=== PATIENT | female | born 1975 | race Caucasian/White ===

== ENCOUNTER 2024-08-16 13:29 | Outpatient (AMB) | payer MEDICAID, SELFPAY ==
[2024-08-16 13:48] VITALS: BP 163/98; PULSE 74; RESP 18; TEMP 36.2; O2SAT 94; BMI 30.2
--- NOTE | 2024-08-16 13:48 | ORTHONT_ITS ---
Vital signs 08/16/24 13:48 Height 1.55 m Height Method Stated Weight 72.66 kg Weight Measurement Method Standing Scale BMI 30.2 BP 163/98 H Blood Pressure Source Automatic Cuff Blood Pressure Location Left Upper Arm Position Sitting Respiration 18 Pulse 74 Pulse Source Monitor Temp 97.1 F Temp Source Temporal Artery Scan Pulse Oximetry (%) 94 L Oxygen Delivery Method Room Air Med/Allergies Allergies & Medications Allergies No Known Allergies Allergy (Verified 08/16/24 13:50) Medication Reconciliation hydrocodone 5 mg-acetaminophen 325 mg tablet 1 tab PO BID PRN 08/16/24 [History Confirmed 08/16/24] naproxen 500 mg tablet 500 mg PO BID 08/16/24 [History Confirmed 08/16/24] Exam Exam Patient is in no acute distress and is cooperative with the examination today. Breathing is nonlabored. Patient has a normal mood and affect. Bilateral extremities were evaluated and demonstrates sensation intact to light touch. Palpable pedal pulses are present. No significant edema is present. Bilateral hips were examined. The patient has no pain with log roll of the hips. Internal rotation to 30 degrees and external rotation to 30 degrees is painless. Negative FADIR. Right knee was examined today. Right knee range of motion 0 to 110 degrees Left knee was examined today. The left knee is in varus alignment. Range of motion from 0-115 degrees. Knee is stable to varus and valgus as well as AP translation with <5mm. Patient has a negative McMurrays. There is no pain with patellofemoral compression and no crepitus noted. The knee is tender to palpation medially. Assessment and Plan Problem List (1) Arthritis of left knee: Status: Acute Plan: Patient is a pleasant 49-year-old female with left knee pain and left knee arthritis. She did well from a right total knee replacement. We would need to get new x-rays of her left knee as she has not had any recently. We can discuss different treatment options depending what this shows. 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 ([id number]) MA Intake Visit Data Collection New Patient or Established: New Patient (never been to [facility]) Reason for Visit:: LEFT KNEE PAIN Seen by Clinical Staff ONLY (RN/MA): No Manufacturing Specialist Required: No PCP or OBGYN visit in last 3 months: Yes Hx Now: No Do You Feel Safe at Home: Yes Authorities Contacted: N/A Questionairres Past Medical History Past Medical History Have you ever been diagnosed with any of the following: Stomache/Intestinal Problems Crohn's Disease: Yes Reproductive Problems Endometriosis: Yes Musculoskeletal Problems Arthritis: Yes Subjective Visit Visit for: new patient and knee (LEFT) Immunization / Flu Flu Vaccine in the Last 12 Months: No Flu Vaccine Exclusion Criteria: No Exclusion Criteria History of Present Illness Chief complaint: Left knee pain Brandon is a pleasant 49-year-old female with left knee pain and left knee arth ritis. She had a history of a right total knee replacement 1 year ago. 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 She has had no injections on the left foot has tried naproxen. 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
== END 2024-08-16 14:08 | disposition home or self-care (01) ==
PROVIDERS: PCP Family Medicine; Referring Provider Family Medicine; Supervising Provider Orthopaedic Surgery Adult Reconstructive Orthopaedic Surgery; Visit Provider Orthopaedic Surgery Adult Reconstructive Orthopaedic Surgery
DX: M17.12 Unilateral primary osteoarthritis, left knee (principal); M25.562 Pain in left knee; Z96.651 Presence of right artificial knee joint; K50.90 Crohn's disease, unspecified, without complications
CPT/HCPCS: 99204; G0463

== ENCOUNTER 2024-11-05 14:12 | Outpatient (AMB) | payer MEDICAID, SELFPAY ==
[2024-11-05 14:25] VITALS: BP 132/86; PULSE 84; RESP 18; TEMP 36.7; O2SAT 98; BMI 28.3
--- NOTE | 2024-11-05 14:25 | PD.ORTHCLVIS ---
Vital signs 11/05/24 14:25 Height 1.55 m Height Method Stated Weight 68.181 kg Weight Measurement Method Standing Scale BMI 28.3 BP 132/86 H Blood Pressure Source Automatic Cuff Blood Pressure Location Right Upper Arm Position Sitting Respiration 18 Pulse 84 Pulse Source Monitor Temp 98.1 F Temp Source Temporal Artery Scan Pulse Oximetry (%) 98 Oxygen Delivery Method Room Air Med/Allergies Allergies & Medications Allergies No Known Allergies Allergy (Verified 11/05/24 14:26) Medication Reconciliation hydrocodone 5 mg-acetaminophen 325 mg tablet 1 tab PO BID PRN 08/16/24 [History Confirmed 11/05/24] naproxen 500 mg tablet 500 mg PO BID 08/16/24 [History Confirmed 11/05/24] Exam Exam Patient is in no acute distress and is cooperative with the examination today. Breathing is nonlabored. Patient has a normal mood and affect. Bilateral extremities were evaluated and demonstrates sensation intact to light touch. Palpable pedal pulses are present. No significant edema is present. Bilateral hips were examined. The patient has no pain with log roll of the hips. Internal rotation to 30 degrees and external rotation to 30 degrees is painless. Negative FADIR. Right knee was examined today. Right knee range of motion 0 to 110 degrees Left knee was examined today. The left knee is in varus alignment. Range of motion from 0-115 degrees. Knee is stable to varus and valgus as well as AP translation with <5mm. Patient has a negative McMurrays. There is no pain with patellofemoral compression and no crepitus noted. The knee is tender to palpation medially. Assessment and Plan Problem List (1) Arthritis of left knee: Status: Acute Plan: Patient is a pleasant 49-year-old female with left knee pain and left knee arthritis. She did well from a right total knee replacement. She has severe arthritis of the left knee and would like a cortisone injection. The MRI did not demonstrate a possible medial subchondral fracture as well as degenerative changes Recommend knee cortisone injection as patient would like to proceed with conservative treatment at this time. The risks and benefits of the procedure were reviewed with the patient and patient gave verbal consent to continue with the procedure. Procedure: performed by Dr. Dubose Using sterile technique the left knee was thoroughly prepped with alcohol, and approximately 1 cc of Kenalog 40 mg/mL and 4 cc of 1% lidocaine was injected without resistance into the medial tibial femoral joint space. The patient tolerated the procedure. Office Procedures GNS Level of Care Nursing/Assessment Patient Status: Established Patient Nursing Assessment/Reassesment: Medication Reconciliation, Update PMH in EMR and Vital Signs Coordination of Care: Complex Care and Chronic Disease 1-5, Education Complex Pt/Fam, Consent,records obtained, informed consent, Results/Orders obtained and Staff clarify orders Established Patient Charge Established Patient Point Assignment: 95 Established Patient Point Charge: EP Level 3 (80-115) Surgical Proc/IM SQ injection Major Surgical Procedure: Yes (KNEE INJECTION ) Medication Given Medication Given Medication Given: Yes Documented Dose Given: 4 Route: Infiitration Medication Given Medication Given Medication Given: Yes Documented Dose Given: 1 Route: Infiitration Office Meds Xylocaine 10 mg/mL (1 %) injection solution Performing Provider: Pedro Dubose MD Performing Location: [facility] Administered by: Pedro Dubose MD on 11/05/24 14:45 Dose Route Admin Location Dispensed Lot Number Expiration Date [facility] Heat Regulator 20 mL Infiltration 20 mL [id number] [facility] triamcinolone acetonide 40 mg/mL suspension for injection Performing Provider: Pedro Dubose MD Performing Location: [facility] Administered by: Pedro Dubose MD on 11/05/24 14:45 Dose Route Admin Location Dispensed Lot Number Expiration Date [facility] Heat Regulator 40 mg intra-articular KNEE 1 mL [id number] 04/09/26 3983-0158-05 TEVA PARENTERAL MA Intake Visit Data Collection New Patient or Established: Established Patient (seen at [facility] within 3 years) Reason for Visit:: MRI RESULTS/XRAY RESULT LT KNEE Seen by Clinical Staff ONLY (RN/MA): No 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 Required: No PCP or OBGYN visit in last 3 months: Yes Hx Now: No Do You Feel Safe at Home: Yes Authorities Contacted: N/A Questionairres Past Medical History Past Medical History Have you ever been diagnosed with any of the following: Respiratory Problems Smoking: No Smoking Cessation Counseling: No Smoking Exposure: No Tobacco Use: No Stomache/Intestinal Problems Crohn's Disease: Yes Reproductive Problems Endometriosis: Yes Musculoskeletal Problems Arthritis: Yes Subjective Visit Visit for: follow up visit and knee (LT KNEE ) Immunization / Flu Flu Vaccine in the Last 12 Months: No Flu Vaccine Exclusion Criteria: Refused by Patient History of Present Illness Chief complaint: Left knee pain Brandon is a pleasant 49-year-old female with left knee pain and left knee arthritis. She had a history of a right total knee replacement 1 year ago. 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 She has had no injections on the left foot has tried naproxen. 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
== END 2024-11-05 14:41 | disposition home or self-care (01) ==
PROVIDERS: PCP Family Medicine; Referring Provider Family Medicine; Supervising Provider Orthopaedic Surgery Adult Reconstructive Orthopaedic Surgery; Visit Provider Orthopaedic Surgery Adult Reconstructive Orthopaedic Surgery
DX: M17.12 Unilateral primary osteoarthritis, left knee (principal); M25.562 Pain in left knee; Z96.621 Presence of right artificial elbow joint
CPT/HCPCS: 20610; 99213; J3301; J3490; G0463

== ENCOUNTER 2025-02-04 09:43 | Outpatient (AMB) | payer MEDICAID, SELFPAY ==
--- NOTE | 2025-02-04 10:04 | ORTHONT_ITS ---
Vital signs 02/04/25 10:10 Height 1.55 m Height Method Measured Weight 70.931 kg Weight Measurement Method Standing Scale BMI 29.5 BP 143/81 H Blood Pressure Source Automatic Cuff Blood Pressure Location Left Upper Arm Position Sitting Respiration 18 Pulse 72 Pulse Source Monitor Temp 97.8 F Temp Source Temporal Artery Scan Pulse Oximetry (%) 98 Oxygen Delivery Method Room Air Med/Allergies Allergies & Medications Allergies No Known Allergies Allergy (Verified 02/04/25 10:11) Medication Reconciliation hydrocodone 5 mg-acetaminophen 325 mg tablet 1 tab PO BID PRN 08/16/24 [History Confirmed 02/04/25] naproxen 500 mg tablet 500 mg PO BID 08/16/24 [History Confirmed 02/04/25] Exam Exam Patient is in no acute distress and is cooperative with the examination today. Breathing is nonlabored. Patient has a normal mood and affect. Bilateral extremities were evaluated and demonstrates sensation intact to light touch. Palpable pedal pulses are present. No significant edema is present. Bilateral hips were examined. The patient has no pain with log roll of the hips. Internal rotation to 30 degrees and external rotation to 30 degrees is painless. Negative FADIR. Right knee was examined today. Right knee range of motion 0 to 110 degrees Left knee was examined today. The left knee is in varus alignment. Range of daryn on from 0-115 degrees. Knee is stable to varus and valgus as well as AP translation with <5mm. Patient has a negative McMurrays. There is no pain with patellofemoral compression and no crepitus noted. The knee is tender to palpation medially. Assessment and Plan Problem List (1) Arthritis of left knee: Status: Acute Plan: Patient is a pleasant 49-year-old female with left knee pain and left knee arthritis. She did well from a right total knee replacement. She has severe arthritis of the left knee and would like a cortisone injection. The MRI ddemonstrated a possible medial subchondral fracture as well as degenerative changes. We will get repeat x-rays to better evaluate her knee including a [place] Office Procedures GNS Level of Care Nursing/Assessment Patient Status: Established Patient Nursing Assessment/Reassesment: Medication Reconciliation, Update PMH in EMR and Vital Signs Coordination of Care: Complex Care and Chronic Disease 1-5, Education Complex Pt/Fam, Consent,records obtained, informed consent, Results/Orders obtained and Staff clarify orders Established Patient Charge Established Patient Point Assignment: 95 Established Patient Point Charge: EP Level 3 (80-115) MA Intake Visit Data Collection New Patient or Established: Established Patient (seen at [facility] within 3 years) Reason for Visit:: KNEE INJECTION Seen by Clinical Staff ONLY (RN/MA): No Advertising Project Manager Required: No PCP or OBGYN visit in last 3 months: Yes Hx Now: No Do You Feel Safe at Home: Yes Authorities Contacted: N/A Questionairres Past Medical History Past Medical History Have you ever been diagnosed with any of the following: Respiratory Problems Smoking: No Smoking Cessation Counseling: No Smoking Exposure: No Tobacco Use: No Stomache/Intestinal Problems Crohn's Disease: Yes Reproductive Problems Endometriosis: Yes Musculoskeletal Problems Arthritis: Yes Subjective Visit Visit for: follow up visit and knee Immunization / Flu Flu Vaccine in the Last 12 Months: No Flu Vaccine Exclusion Criteria: No Exclusion Criteria History of Present Illness Chief complaint: KNEE INJECTION Brandon is a pleasant 49-year-old female with left knee pain and left knee arthritis. She had a history of a right total knee replacement 1 year ago. 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 She has had no injections on the left foot has tried naproxen. 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: NONE Red flag PMH: none BMI Counceling provided: No Pain Pain level (0-10): 8 Pain duration: 1 DAY Pain location: inside (medial) and outside (lateral) Pain quality: sharp, dull, aching and burning Pain timing: night Associated signs & symptoms: none Ambulatory data Ambulatory device: none Walking distance (blocks): 0 Walking distance (minutes): 1 Treatments Number of previous injections: 2 Improvement with previous injections: Yes Number of Physical Therapy sessions: 0 Improvement with PT: No Improvement with NSAIDS: no Review of Systems Review of Systems: All systems negative unless otherwise noted in HPI.
[2025-02-04 10:10] VITALS: BP 143/81; PULSE 72; RESP 18; TEMP 36.6; O2SAT 98; BMI 29.5
--- NOTE | 2025-02-04 10:13 | XR_ITS ---
Examination: Bilateral knees 2 views Right lateral knee left lateral knee 2 views Bilateral axial knees single view TECHNIQUE: Bilateral AP knees standing single view, bilateral PA knees standing flexion single view Standing right lateral knee left lateral knee Bilateral axial knees single view total 5 views Date and time: February 04, 2025 1038 hours INDICATIONS: Bilateral knee pain beginning 10 years ago FINDINGS: Moderate osteopenia Total right knee arthroplasty. Satisfactory alignment No fracture Advanced narrowing medial joint space left knee Mild osteoarthritis left patellofemoral joint IMPRESSION: Total right knee arthroplasty with satisfactory alignment No definite loosening of the prosthetic components Advanced narrowing medial joint space left knee
== END 2025-02-04 10:20 | disposition home or self-care (01) ==
PROVIDERS: PCP Nurse Practitioner; Referring Provider Nurse Practitioner; Supervising Provider Orthopaedic Surgery Adult Reconstructive Orthopaedic Surgery; Visit Provider Orthopaedic Surgery Adult Reconstructive Orthopaedic Surgery
DX: M17.12 Unilateral primary osteoarthritis, left knee (principal); M25.562 Pain in left knee; Z96.651 Presence of right artificial knee joint
CPT/HCPCS: 73564; 99213; G0463

== ENCOUNTER 2025-02-28 14:24 | Outpatient (AMB) | payer MEDICAID, SELFPAY ==
[2025-02-28 14:33] VITALS: BP 129/79; PULSE 72; RESP 18; TEMP 36.6; O2SAT 97; BMI 29.5
--- NOTE | 2025-02-28 14:33 | PD.ORTHCLVIS ---
Vital signs 02/28/25 14:33 Height 1.55 m Height Method Stated Weight 70.959 kg Weight Measurement Method Standing Scale BMI 29.5 BP 129/79 Blood Pressure Source Automatic Cuff Blood Pressure Location Left Upper Arm Position Sitting Respiration 18 Pulse 72 Pulse Source Monitor Temp 97.8 F Temp Source Temporal Artery Scan Pulse Oximetry (%) 97 Oxygen Delivery Method Room Air Med/Allergies Allergies & Medications Allergies No Known Allergies Allergy (Verified 02/28/25 14:34) Medication Reconciliation hydrocodone 5 mg-acetaminophen 325 mg tablet 1 tab PO BID PRN 08/16/24 [History Confirmed 02/28/25] naproxen 500 mg tablet 500 mg PO BID 08/16/24 [History Confirmed 02/28/25] Exam Exam Patient is in no acute distress and is cooperative with the examination today. Breathing is nonlabored. Patient has a normal mood and affect. Bilateral extremities were evaluated and demonstrates sensation intact to light touch. Palpable pedal pulses are present. No significant edema is present. Bilateral hips were examined. The patient has no pain with log roll of the hips. Internal rotation to 30 degrees and external rotation to 30 degrees is painless. Negative FADIR. Right knee was examined today. Right knee range of motion 0 to 110 degrees Left knee was examined today. The left knee is in varus alignment. Range of motion from 0-115 degrees. Knee is stable to varus and valgus as well as AP translation with <5mm. Patient has a negative McMurrays. There is no pain with patellofemoral compression and no crepitus noted. The knee is tender to palpation medially. Assessment and Plan Problem List (1) Arthritis of left knee: Status: Acute Plan: Patient is a pleasant 49-year-old female with left knee pain and left knee arthritis. She did well from a right total knee replacement. She has severe arthritis of the left knee and would like a cortisone injection. The MRI ddemonstrated a possible medial subchondral fracture as well as degenerative changes. Recommend knee cortisone injection as patient would like to proceed with conservative treatment at this time. The risks and benefits of the procedure were reviewed with the patient and patient gave verbal consent to continue with the procedure. Procedure: performed by Dr. Dubose Using sterile technique the left knee was thoroughly prepped with alcohol, and approximately 1 cc of Depo-Medrol 80mg/mL and 4 cc of 0.2% ropivacaine was injected without resistance into the medial tibial femoral joint space. The patient tolerated the procedure. Office Procedures GNS Level of Care Nursing/Assessment Patient Status: Established Patient Nursing Assessment/Reassesment: Medication Reconciliation, Update PMH in EMR and Vital Signs Coordination of Care: Complex Care and Chronic Disease 1-5, Education Complex Pt/Fam, Consent,records obtained, informed consent, Results/Orders obtained and Staff clarify orders Established Patient Charge Established Patient Point Assignment: 95 Established Patient Point Charge: EP Level 3 (80-115) Surgical Proc/IM SQ injection Major Surgical Procedure: Yes (LEFT KNEE INJECTION) Medication Given Medication Given Medication Given: Yes Documented Dose Given: 1 Route: Infiitration Medication Given Medication Given Medication Given: Yes Documented Dose Given: 4 Route: Infiitration Office Meds methylprednisolone acetate 80 mg/mL suspension for injection Performing Provider: Pedro Dubose MD Performing Location: [facility] Administered by: Pedro Dubose MD on 02/28/25 14:30 Dose Route Admin Location Dispensed Lot Number Expiration Date [facility] [employer] Calender Operator 80 mg intra-articular KNEE 1 mL [id number] 08/09/26 0384-4510-15 [facility] ropivacaine (PF) 2 mg/mL (0.2 %) injection solution Performing Provider: Pedro Dubose MD Performing Location: [facility] Administered by: Pedro Dubose MD on 02/28/25 14:30 Dose Route Admin Location Dispensed Lot Number Expiration Date [facility] Emb[employer]ing Calender Operator 20 mL Infiltration KNEE 20 mL [id number] 08/09/27 62065-103-15 [facility] Intake Visit Data Collection New Patient or Established: Established Patient (seen at [facility] within 3 years) Reason for Visit:: XRAY RESULTS Seen by Clinical Staff ONLY (RN/MA): No Solutions Engineer Required: No PCP or OBGYN visit in last 3 months: Yes Hx Now: No Do You Feel Safe at Home: Yes Authorities Contacted: N/A Questionairres Past Medical History Past Medical History Have you ever been diagnosed with any of the following: Respiratory Problems Smoking: No Smoking Cessation Counseling: No Smoking Exposure: No Tobacco Use: No Stomache/Intestinal Problems Crohn's Disease: Yes Reproductive Problems Endometriosis: Yes Musculoskeletal Problems Arthritis: Yes Subjective Visit Visit for: follow up visit and knee Immunization / Flu Flu Vaccine in the Last 12 Months: No Flu Vaccine Exclusion Criteria: No Exclusion Criteria History of Present Illness Chief complaint: XRAY RESULTS/L KNEE INJECTION Brandon is a pleasant 49-year-old female with left knee pain and left knee arthritis. She had a history of a right total knee replacement 1 year ago. 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 She has had no injections on the left foot has tried naproxen. 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: NONE Red flag PMH: none BMI Counceling provided: No Pain Pain level (0-10): 8 Pain duration: 1 DAY Pain location: inside (medial) and outside (lateral) Pain quality: sharp, dull, aching and burning Pain timing: night Associated signs & symptoms: none Ambulatory data Ambulatory device: none Walking distance (blocks): 0 Walking distance (minutes): 1 Treatments Number of previous injections: 2 Improvement with previous injections: Yes Number of Physical Therapy sessions: 0 Improvement with PT: No Improvement with NSAIDS: no Review of Systems Review of Systems: All systems negative unless otherwise noted in HPI.
== END 2025-02-28 14:45 | disposition home or self-care (01) ==
LOC: HODSRG 14:24
PROVIDERS: PCP Nurse Practitioner; Referring Provider Nurse Practitioner; Supervising Provider Orthopaedic Surgery Adult Reconstructive Orthopaedic Surgery; Visit Provider Orthopaedic Surgery Adult Reconstructive Orthopaedic Surgery
DX: M17.12 Unilateral primary osteoarthritis, left knee (principal); M25.562 Pain in left knee; Z96.651 Presence of right artificial knee joint; K50.90 Crohn's disease, unspecified, without complications
CPT/HCPCS: 20610; 99213; J1010; J2795; G0463

== ENCOUNTER 2025-06-03 14:43 | Outpatient (AMB) | payer MEDICAID, SELFPAY ==
--- NOTE | 2025-06-03 14:57 | ORTHONT_ITS ---
Vital signs 06/03/25 14:58 Height 1.55 m Height Method Stated Weight 67.84 kg Weight Measurement Method Standing Scale BMI 28.2 BP 104/63 Blood Pressure Source Automatic Cuff Blood Pressure Location Left Upper Arm Position Sitting Respiration 18 Pulse 82 Pulse Source Monitor Temp 97.1 F Temp Source Temporal Artery Scan Pulse Oximetry (%) 97 Oxygen Delivery Method Room Air Med/Allergies Allergies & Medications Allergies No Known Allergies Allergy (Verified 06/03/25 14:58) Medication Reconciliation hydrocodone 5 mg-acetaminophen 325 mg tablet 1 tab PO BID PRN 08/16/24 [History Confirmed 06/03/25] naproxen 500 mg tablet 500 mg PO BID 08/16/24 [History Confirmed 06/03/25] Exam Exam Patient is in no acute distress and is cooperative with the examination today. Breathing is nonlabored. Patient has a normal mood and affect. Bilateral extremities were evaluated and demonstrates sensation intact to light touch. Palpable pedal pulses are present. No significant edema is present. Bilateral hips were examined. The patient has no pain with log roll of the hips. Internal rotation to 30 degrees and external rotation to 30 degrees is painless. Negative FADIR. Right knee was examined today. Right knee range of motion 0 to 110 degrees Left knee was examined today. The left knee is in varus alignment. Range of motion from 0-115 degrees. Knee is stable to varus and valgus as well as AP translation with <5mm. Patient has a negative McMurrays. There is no pain with patellofemoral compression and no crepitus noted. The knee is tender to palpation medially. Assessment and Plan Problem List (1) Arthritis of left knee: Status: Acute Plan: Patient is a pleasant 49-year-old female with left knee pain and left knee arthritis. She did well from a right total knee replacement. She has severe arthritis of the left knee and would like a cortisone injection. The MRI ddemonstrated a possible medial subchondral fracture as well as degenerative changes. Recommend knee cortisone injection as patient would like to proceed with conservative treatment at this time. The risks and benefits of the procedure were reviewed with the patient and patient gave verbal consent to continue with the procedure. Procedure: performed by Dr. Dubose Using sterile technique the left knee was thoroughly prepped with alcohol, and approximately 1 cc of Depo-Medrol 80mg/mL and 4 cc of 0.2% ropivacaine was injected without resistance into the medial tibial femoral joint space. The patient tolerated the procedure. Office Procedures GNS Level of Care Nursing/Assessment Patient Status: Established Patient Nursing Assessment/Reassesment: Medication Reconciliation, Update PMH in EMR and Vital Signs Coordination of Care: Complex Care and Chronic Disease 1-5, Education Complex Pt/Fam, Consent,records obtained, informed consent, Results/Orders obtained and Staff clarify orders Established Patient Charge Established Patient Point Assignment: 95 Established Patient Point Charge: EP Level 3 (80-115) Surgical Proc/IM SQ injection Minor Surgical Procedure: Yes (KNEE INJECTION) Medication Given Medication Given Medication Given: Yes Documented Dose Given: 1 Route: Infiitration Medication Given Medication Given Medication Given: Yes Documented Dose Given: 4 Route: Infiitration Office Meds methylprednisolone acetate 80 mg/mL suspension for injection Performing Provider: Pedro Dubose MD Performing Location: [facility] Administered by: Pedro Dubose MD on 06/03/25 15:20 Dose Route Admin Location Dispensed Lot Number Expiration Date Pack age [facility] Forming Fixer 80 mg intra-articular KNEE 1 mL [id number] 02/06/27 [address]-8 [id number] [employer] ropivacaine (PF) 2 mg/mL (0.2 %) injection solution Performing Provider: Pedro Dubose MD Performing Location: [facility] Administered by: Pedro Dubose MD on 06/03/25 15:20 Dose Route Admin Location Dispensed Lot Number Expiration Date Pack age [facility] Forming Fixer 20 mL Infiltration KNEE 20 mL [id number] 08/09/27 66225-640-84 [id number] [facility] Intake Visit Data Collection New Patient or Established: Established Patient (seen at [facility] within 3 years) Reason for Visit:: 3 MTH LEFT KNEE INJECTION Seen by Clinical Staff ONLY (RN/MA): No Casting Inspector Required: No PCP or OBGYN visit in last 3 months: Yes Hx Now: No Do You Feel Safe at Home: Yes Authorities Contacted: N/A Questionairres Past Medical History Past Medical History Have you ever been diagnosed with any of the following: Respiratory Problems Smoking: No Smoking Cessation Counseling: No Smoking Exposure: No Tobacco Use: No Stomache/Intestinal Problems Crohn's Disease: Yes Reproductive Problems Endometriosis: Yes Musculoskeletal Problems Arthritis: Yes Subjective Visit Visit for: follow up visit and knee Immunization / Flu Flu Vaccine in the Last 12 Months: No Flu Vaccine Exclusion Criteria: No Exclusion Criteria History of Present Illness Chief complaint: 3MTH L KNEE INJ BRADLEY Taylor is a pleasant 49-year-old female with left knee pain and left knee arthritis. She had a history of a right total knee replacement 1 year ago. 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 She has had no injections on the left foot has tried naproxen. She has also tried physical therapy For the left knee, she has had multiple injections, home exercises, and has tried ibuprofen Personal History Occupation: G[employer] Hobbies: NONE Red flag PMH: none BMI Counceling provided: No Pain Pain level (0-10): 8 Pain duration: 1 DAY Pain location: inside (medial) and outside (lateral) Pain quality: sharp, dull, aching and burning Pain timing: night Associated signs & symptoms: none Ambulatory data Ambulatory device: none Walking distance (blocks): 0 Walking distance (minutes): 1 Treatments Number of previous injections: 2 Improvement with previous injections: Yes Number of Physical Therapy sessions: 0 Improvement with PT: No Improvement with NSAIDS: no Review of Systems Review of Systems: All systems negative unless otherwise noted in HPI.
[2025-06-03 14:58] VITALS: BP 104/63; PULSE 82; RESP 18; TEMP 36.2; O2SAT 97; BMI 28.2
== END 2025-06-03 15:25 | disposition home or self-care (01) ==
LOC: HODSRG 14:43
PROVIDERS: PCP Nurse Practitioner; Referring Provider Nurse Practitioner; Supervising Provider Orthopaedic Surgery Adult Reconstructive Orthopaedic Surgery; Visit Provider Orthopaedic Surgery Adult Reconstructive Orthopaedic Surgery
DX: M25.562 Pain in left knee (principal); M17.12 Unilateral primary osteoarthritis, left knee; Z96.651 Presence of right artificial knee joint
CPT/HCPCS: 20610; 99213; J1010; J2795; G0463